=== PATIENT | female | born 1975 | race Caucasian/White ===

== ENCOUNTER 2019-03-06 08:09 | Emergency (ER) | payer SELFPAY ==
[2019-03-06 08:20] VITALS: BP 146/93
--- NOTE | 2019-03-06 08:27 | PHYS DOC ---
Adult General Chief Complaint Chief Complaint: HYPERTENSION HPI HPI Patient is a 44-year-old female who presents with complaint of palpitations, stating that it feels like her heart is beating really fast and really hard. She states that she's been feeling like this for about a week or so. She states that yesterday symptoms had gotten worse and she felt like she was given a pass out. She states that she felt the same this morning while she was driving in the car. She states that the most strenuous thing that she has done today is making a peanut butter and jelly sandwich but she is still feeling exhausted. She denies any actual pain associated with palpitations. She denies any headache or dizziness. She does complain of some shortness of breath with exertion.[] Review of Systems Review of Systems Constitutional: Denies fever or chills [] Eyes: Denies change in visual acuity, redness, or eye pain [] Respiratory: Denies cough or shortness of breath [] Cardiovascular: No additional information not addressed in HPI [] GI: Denies abdominal pain, nausea, vomiting or diarrhea [] Integument: Denies rash or skin lesions [] Neurologic: Denies headache, focal weakness or sensory changes [] All other systems were reviewed and found to be within normal limits, except as documented in this note. Allergies Allergies Allergies Coded Allergies Type Severity Reaction Last Updated Verified No Known Drug Allergies 03/06/19 No Physical Exam Physical Exam Constitutional: Well developed, well nourished, no acute distress, non-toxic appearance. [] HENT: Normocephalic, atraumatic, bilateral external ears normal, oropharynx moist, no oral exudates, nose normal. [] Eyes: PERRLA, EOMI, conjunctiva normal, no discharge. [] Neck: Normal range of motion, no tenderness, supple, no stridor. [] Cardiovascular: Regular rate and rhythm[] Lungs & Thorax: Bilateral breath sounds clear to auscultation [] Abdomen: Bowel sounds normal, soft, no tenderness. [] Skin: Warm, dry, no erythema, no rash. [] Extremities: No tenderness, no cyanosis, no clubbing, ROM intact. [] Neurologic: Alert and oriented X 3, no focal deficits noted. [] EKG EKG [] Radiology/Procedures Radiology/Procedures [] Course & Med Decision Making Course & Med Decision Making Pertinent Labs and Imaging studies reviewed. (See chart for details) [] Dragon Disclaimer Dragon Disclaimer This electronic medical record was generated, in whole or in part, using a voice recognition dictation system. Departure Departure: Impression: Primary Impression: Hypertension, essential Additional Impression: Palpitations Disposition: HOME, SELF-CARE Condition: STABLE Referrals: PCP,NO (PCP) Patient Instructions: Hypertension, Palpitations Scripts Lisinopril (LISINOPRIL) 10 Mg Tablet 1 TAB PO DAILY for HTN, #30 TAB Prov: HANANE WILLS Jr. DO 03/06/19 Problem Qualifiers HANANE WILLS Jr. DO Mar 06, 2019 08:27
[2019-03-06] MEDS ORDERED: ASPIRIN 81 MG TAB.CHEW PO ONE (08:30)
--- NOTE | 2019-03-06 08:41 | RAD ---
PORTABLE CHEST 1V History: Palpitations Comparison: None. Findings: No consolidation or pleural effusion. Normal heart size. Calcified right midlung pulmonary nodule, likely prior granulomatous disease. Impression: 1. No acute cardiopulmonary process. Electronically signed by: Hero Venegas DO (03/06/2019 8:38 AM) [facility]
[2019-03-06 08:50] LABS: BASO # 0.1 x10^3/uL (0.0-0.2); BASO % 1 % (0-3); EOS # 0.1 x10^3/uL (0.0-0.7); EOS % 1 % (0-3); HEMATOCRIT 39.7 % (36.0-47.0); HEMOGLOBIN 13.4 g/dL (12.0-15.5); LYMPH # 1.9 x10^3/uL (1.0-4.8); LYMPH % 22 % (24-48); MEAN CORPUSCULAR HEMOGLOBIN 30 pg (25-35); MEAN CORPUSCULAR HGB CONC 34 g/dL (31-37); MEAN CORPUSCULAR VOLUME 89 fL (79-100); MONO # 0.8 x10^3/uL (0.0-1.1); MONO % 9 % (0-9); NEUT # 5.8 x10^3uL (1.8-7.7); NEUT % 67 % (31-73); PLATELET COUNT 228 x10^3/uL (140-400); RED BLOOD COUNT 4.49 x10^6/uL (3.50-5.40); RED CELL DISTRIBUTION WIDTH 13.8 % (11.5-14.5); WHITE BLOOD COUNT 8.7 x10^3/uL (4.0-11.0)
[2019-03-06 09:10] LABS: ALBUMIN 3.8 g/dL (3.4-5.0); ALBUMIN/GLOBULIN RATIO 1.1 (1.0-1.7); CALCIUM 8.7 mg/dL (8.5-10.1); CREATININE 0.7 mg/dL (0.6-1.0); GFR 90.5; MAGNESIUM 1.7 mg/dL (1.8-2.4); POTASSIUM 3.8 mmol/L (3.5-5.1); TOTAL BILIRUBIN 0.4 mg/dL (0.2-1.0); TOTAL PROTEIN 7.4 g/dL (6.4-8.2)
[2019-03-06] MEDS ORDERED: LISI10TA2 PO (10:18)
--- NOTE | 2019-03-06 12:29 | EKG ---
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
== END 2019-03-06 10:25 | disposition home or self-care (01) ==
LOC: ER 08:09
DX: I10 Essential (primary) hypertension (principal)
CPT/HCPCS: 36415; 71045; 80053; 83735; 83880; 84484; 85025; 93005; 99285